=== PATIENT | male | born 1990 | race Caucasian/White ===

== ENCOUNTER 2023-03-09 22:24 | Emergency (ER) | payer SELFPAY ==
[~2023-03-09 22:24] MED LIST: Iopamidol 370 76% 100 ML VIAL ONE
[2023-03-09] MEDS ORDERED: Ondansetron PF 4 MG/2 ML Vial ONE (22:29)
[2023-03-09] MEDS ORDERED: Morphine 4 MG/ML VIAL ONE (22:29)
[2023-03-09 22:38] LABS: #Basophils 0.1 thou/uL (0.0-0.2); #Eosinphils 0.2 thou/uL (0.0-0.7); #Lymphocytes 2.3 thou/uL (1.20-3.40); #Monocytes 0.6 thou/uL (0.11-0.59); #Neutrophils 4.2 thou/uL (1.40-6.50); %Basophils 0.8 % (0.0-1.0); %Eosinophils 2.1 % (0.0-10.0); %Lymphocytes 31.9 % (21.0-51.0); %Monocytes 7.6 % (0.0-10.0); %Neutrophils 57.5 % (42.0-75.0); Hematocrit 48.4 % (42.0-52.0); Hemoglobin 16.6 g/dL (14.0-18.0); Mean Corpuscular HGB CONC 34.4 g/dL (32.0-36.0); Mean Corpuscular Hemoglobin 29.8 pg (27.0-31.0); Mean Corpuscular Volume 86.7 fl (78.0-98.0); Mean Platelet Volume 11.3 fL (7.4-10.4); Platelet Count 199 10x3/uL (130-400); RBC Distribution Width 11.9 % (11.5-14.5); Red Blood Cell (RBC) Count 5.58 mill/uL (4.70-6.10); White Blood Cell (WBC) Count 7.3 10x3/uL (4.8-10.8)
[2023-03-09 22:47] LABS: INR-International Normal Ratio 0.9; Prothrombin Time 12.1 sec (12.0-14.7)
[2023-03-09 22:56] LABS: PTT 21.4 sec (22.9-36.1)
[2023-03-09 22:57] LABS: Troponin I Less than 0.010 ng/mL (< 0.028)
[2023-03-09 22:58] LABS: ALT (SGPT) 272 U/L (8-55); AST (SGOT) 223 U/L (5-34); Albumin 4.6 g/dL (3.5-5.0); Alkaline Phosphatase 46 U/L (40-110); Anion Gap 19 mmol/L (10-20); BUN (Urea Nitrogen) 11 mg/dL (8.9-20.6); Bilirubin, Total 0.4 mg/dL (0.2-1.2); Calc. Creatinine Clearance 0 mL/min (70-130); Calcium 9.2 mg/dL (7.8-10.44); Carbon Dioxide 24 mmol/L (22-29); Chloride 101 mmol/L (98-107); Estimated GFR 81; Globulin 3.6 g/dL (2.4-3.5); Glucose 211 mg/dL (70-105); Lipase 15 U/L (8-78); Magnesium 1.8 mg/dL (1.6-2.6); Potassium 4.4 mmol/L (3.5-5.1); Protein, Total 8.2 g/dL (6.0-8.3); Sodium 140 mmol/L (136-145)
[2023-03-09] MEDS ORDERED: Sodium Chloride 0.9% 1,000 ML ONE (23:06)
== END 2023-03-10 00:02 | disposition home or self-care (01) ==
LOC: MADERS 22:24
DX: S06.0X0A Concussion without loss of consciousness, initial encounter (principal); S30.1XXA Contusion of abdominal wall, initial encounter; F10.129 Alcohol abuse with intoxication, unspecified; K70.9 Alcoholic liver disease, unspecified; V86.95XA Unspecified occupant of 3- or 4- wheeled all-terrain vehicle (ATV) injured in nontraffic accident, initial encounter
CPT/HCPCS: 36415; 70450; 71260; 72125; 74177; 80053; 80307; 83605; 83690; 83735; 84484; 85025; 85610; 85730; 93005; 96374; 96375; J2270; J2405; J7050; Q9967